=== PATIENT | female | born 1985 | race Asian ===

== ENCOUNTER → 2017-03-07 | Outpatient (CLI) | payer BC ==
[~2017-03-07] MED LIST: ACET-2178 PO; PHEN105C PO
[2017-03-07 12:15] LABS: BASOPHILS % 0.8 % (0.0-2.0); EOSINOPHILS % 1.5 % (0.0-5.0); HEMATOCRIT. 39.9 % (36.0-48.0); HEMOGLOBIN. 13.7 g/dL (12.0-16.0); MEAN CORPUSCULAR HEMOGLOBIN 29.5 pg (28.0-32.0); MEAN CORPUSCULAR VOLUME 85.9 fL (81.0-99.0); MONOCYTES % 6.8 % (2.0-8.0); NEUTROPHILS % 54.9 % (40.0-76.0); PLATELET 240 x1000/uL (130-400); RED BLOOD CELL COUNT 4.65 mill/uL (4.2-5.4); RED CELL DISTRIBUTION WIDTH 13.7 % (11.6-14.6)
[2017-03-07 12:40] LABS: CARBON DIOXIDE 25 mEq/L (21-32); CHLORIDE 104 mEq/L (98-107); HDL CHOLESTEROL 34 mg/dL (40-59); LDL CHOLESTEROL 117 mg/dL (5-100); T4 FREE 1.19 ng/dL (0.76-1.46)
== END | disposition home or self-care (01) ==
LOC: LAB 11:53
PROVIDERS: ATTEND Specialist
DX: Z00.01 Encounter for general adult medical examination with abnormal findings (principal); R79.89 Other specified abnormal findings of blood chemistry
CPT/HCPCS: 36415; 80053; 80061; 83036; 84439; 84443; 84481; 85025

== ENCOUNTER 2017-03-22 06:14 | Emergency (ER) | payer BC ==
[~2017-03-22] VITALS: Ht 157.5 cm; Wt 114.0 kg
[2017-03-22] MEDS ORDERED: KETOROLAC 30MG/ML VIAL IV STA (07:36)
[2017-03-22] MEDS ORDERED: SODIUM CHLORIDE 0.9% 1,000 ML IV ONE (07:36)
[2017-03-22] MEDS ORDERED: PENICILLIN G BENZATHINE 1,200,000 UNITS/2ML SYR IM ONE (07:45)
[2017-03-22] MEDS ORDERED: ACETAMINOPHEN 325MG TABLET PO ONE (07:45)
[2017-03-22 10:27] VITALS: BP 120/75
== END 2017-03-22 10:29 | disposition home or self-care (01) ==
LOC: ER 06:14
DX: J02.0 Streptococcal pharyngitis (principal); J45.909 Unspecified asthma, uncomplicated; E11.9 Type 2 diabetes mellitus without complications
CPT/HCPCS: 96361; 96372; 96374; 99284; J0561; J1885; J7030; Z7610